=== PATIENT | female | born 1965 | race Caucasian/White ===

== ENCOUNTER 2019-12-23 16:28 | Emergency (ER) | payer MEDICAID ==
[~2019-12-23] VITALS: Ht 165.1 cm; Wt 81.9 kg
--- NOTE | 2019-12-23 17:07 | NUR ---
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
[2019-12-23] MEDS ORDERED: LIDOCAINE 1%, 10ML INFIL ONE (18:30)
--- NOTE | 2019-12-23 18:30 | NUR ---
CONSENT SIGNED FOR ARTHROCENTESIS. BEDSIDE SET UP FOR PROCEDURE. MD AWARE.
[2019-12-23] MEDS ORDERED: LIDOCAINE-MPF 1%, 5ML ONE (18:35)
[2019-12-23 18:46] VITALS: BP 123/80
--- NOTE | 2019-12-23 19:17 | NUR ---
AT BEDSIDE FOR PROCEDURE.
--- NOTE | 2019-12-23 20:01 | NUR ---
PT DOES NOT WANT TO STAY FOR TEST RESULTS. PT ADVISED OF RISK OF LEAVING AMA, AND CAN COME BACK IF SHE DOESN'T FEEL WELL. NOTIFIED.
--- NOTE | 2019-12-23 20:03 | NUR ---
PT REFUSED TO SIGN AMA PAPER.
== END 2019-12-23 20:04 | disposition home or self-care (01) ==
LOC: ED 18:43
DX: M25.461 Effusion, right knee (principal); M79.661 Pain in right lower leg; F17.210 Nicotine dependence, cigarettes, uncomplicated
CPT/HCPCS: 20610; 85810; 87070; 87205; 89050; 89060; 99285